=== PATIENT | male | born 1935 | race Caucasian/White ===

== ENCOUNTER → 2016-07-23 | Outpatient (CLI) | payer MEDICARE, OTHER | LOC: LAB 09:46 | PROVIDERS: ATTEND Internal Medicine | DX: E03.8 Other specified hypothyroidism (principal); R97.20 Elevated prostate specific antigen [PSA] | CPT/HCPCS: 36415; 84153; 84439; 84443 ==

== ENCOUNTER → 2016-08-16 | Outpatient (CLI) | payer MEDICARE, OTHER | LOC: RAD 11:03 | PROVIDERS: ATTEND Internal Medicine | DX: R05 Cough (principal); R06.09 Other forms of dyspnea; I10 Essential (primary) hypertension; I51.7 Cardiomegaly | CPT/HCPCS: 71020 ==

== ENCOUNTER → 2016-08-16 | Outpatient (REF) | payer MEDICARE, OTHER ==
[2016-08-16 11:15] LABS: ANION GAP 14.4 MEQ/L (3-15)
== END ==
LOC: LAB 10:46
PROVIDERS: ATTEND Internal Medicine
DX: I10 Essential (primary) hypertension (principal); R06.00 Dyspnea, unspecified; I25.10 Atherosclerotic heart disease of native coronary artery without angina pectoris
CPT/HCPCS: 80048; 83880

== ENCOUNTER → 2016-08-23 | Outpatient (CLI) | payer MEDICARE, OTHER ==
[~2016-08-23] MED LIST: ASPI-860 PO; BUDE10.22 IH; CLOP75TA28 PO; COLC0.6T9 PO; HCT25T PO; LSRT50T PO; METF1000 PO; RANI150T11 PO; SMV10T PO; TERA5CAP3 PO
[2016-08-23 09:12] LABS: ANION GAP 18.8 MEQ/L (3-15)
== END ==
LOC: LAB 08:16
PROVIDERS: ATTEND Internal Medicine
DX: I10 Essential (primary) hypertension (principal)
CPT/HCPCS: 36415; 80048

== ENCOUNTER → 2016-09-21 | Outpatient (CLI) | payer MEDICARE, OTHER ==
[2016-09-21 08:39] LABS: ANION GAP 15.9 MEQ/L (3-15)
== END ==
LOC: LAB 08:12
PROVIDERS: ATTEND Internal Medicine
DX: R73.01 Impaired fasting glucose (principal)
CPT/HCPCS: 36415; 80048; 83036